=== PATIENT | male | born 1940 | race African-American/Black ===

== ENCOUNTER 2018-07-15 03:41 | Emergency (ER) | payer OTHER ==
[~2018-07-15] VITALS: Ht 180.3 cm; Wt 82.6 kg
[2018-07-15] MEDS ORDERED: TAMS0.4C (03:59)
[2018-07-15] MEDS ORDERED: NORVASC2.5 M1 (03:59)
== END 2018-07-15 14:48 | disposition home or self-care (01) ==
LOC: ER 03:41
DX: R42 Dizziness and giddiness (principal)